=== PATIENT | male | born 1995 | race Caucasian/White ===

== ENCOUNTER 2018-05-13 03:05 | Emergency (ER) | payer OTHER, SELFPAY ==
[2018-05-13 03:06] VITALS: BP 113/68; PULSE 65; RESP 18; TEMP 36.4; O2SAT 98; BMI 28.8
--- NOTE | 2018-05-13 03:51 | EKG12_ITS ---
Test Reason : GEN ILLNESS Blood Pressure : / mmHG Vent. Rate : 055 BPM Atrial Rate : 055 BPM P-R Int : 154 ms QRS Dur : 104 ms QT Int : 404 ms P-R-T Axes : 053 069 028 degrees QTc Int : 386 ms Sinus bradycardia Otherwise normal ECG Confirmed by GUERA BOLTON, APRIL ([id number]), commissioning editor CHEMO WRAY ([id number] on 05/15/2018 11:28:38 AM Referred By: KATIE Confirmed By:APRIL LYNNE MD
--- NOTE | 2018-05-13 03:52 | ED.VIS.GEN ---
History of Present Illness Chief Complaint: General Illness Informant: Patient, Friend Onset: Hours - 2 Timing: Continuous - resolved now Quality: racing HB Location: chest Current Severity: gone Maximum Severity: Severe Worsened by: standing up Relieved by: drinking a bunch of water before coming to ED Associated Symptoms: anxious, lightheaded w/ standing Narrative: Patient states yesterday he drank 2 energy drinks, which he rarely does, and later additionally took 2 caplets of a dietary supplement that is used to boost energy and suppress appetite. However, he drank these drinks about 15-16 hours ago, and then took the supplements around 14 hours ago. He did not have any of these symptoms until he was trying to go to sleep tonight. He states after drinking the energy drinks, he was playing a softball game, and for the rest of the afternoon, evening, night, he drank no water until just prior to coming to the ER. He states that drinking plenty of water is recommended with these supplements, and that he usually does when he takes them, but it was cold and he did not want to drink a lot of cold water. At this time, he is basically asymptomatic, after drinking water. Past Medical History - Allergies and Home Meds Allergies/Adverse Reactions: Allergies No Known Allergies Allergy (Verified 03/11/14 07:14) Primary Care Physician: Wen Colunga MD [Primary Care Provider] - As Needed (if you have recurrent symptoms despite discontinuing the dietary supplement.) Past Medical History: None Surgical History: no surgical history Smoking Status: Former smoker Drugs: None Review of Systems General: Reports: - - lightheadedness Cardiovascular: Reports: Palpitations, Heart racing. Denies: Chest pain Respiratory: Reports: Dyspnea - resolved w/ palpitations Gastrointestinal: Denies: Nausea, Vomiting Musculoskeletal: Denies: Neck pain, Back pain Skin: Denies: Rash, Wounds Neurological: Denies: Headache, Weakness, Parasthesia Psych: Reports: Anxiety Physical Exam Vital Signs/Narrative: Vital Signs Temp Pulse Resp BP Pulse Ox 05/13/18 03:06 97.5 F L 65 18 113/68 98 Inital Vital Signs reviewed: Yes General: Well nourished, Well developed Head: Normocephalic, Atraumatic Eyes: Perrl, EOMI ENT: Moist mucous membranes, No rhinorrhea Neck: Supple, Nontender, No JVD Cardiovascular: Regular rate, Regular rhythm, No murmurs. Negative for: Tachycardia Respiratory: No distress, CTA bilaterally, Chest nontender Abdomen: Soft, Nontender, Nondistended, Normal bowel sounds Back: Nontender, Normal Inspection Extremities: Nontender, No edema Skin: Normal color, No rash Neurological: Alert, Oriented x3, Cranial nerves II-XII grossly intact, Normal Strength, Normal Sensation, Normal Gait Psychological: Normal affect Diagnostic/Tx/Re-eval Laboratory Tests 05/13/18 Range/Units 03:53 POC Glucose 125 H (70-110) mg/dL - Rhythm Strip Rhythm Strip: Sinus Rhythm Rate: 65 Ectopy: None - EKG Initial EKG Interpretation: Sinus Rhythm, No Acute Injury Pattern, - - normal intervals/axis, no delta wave, normal EKG - Medical Decision Making EKG and blood sugar are normal. I do not suspect this was caffeine toxicity since the symptoms occurred so long after stimulant/caffeine intake. It is possible they could have been side effects from the dietary supplement, combined with dehydration. His vital signs are normal now, I do not think he needs IV fluids, he can self hydrate orally. He already discarded all of the rest of the dietary supplement, and will no longer be taking it. Advised to limit his caffeine intake for the next couple days, and follow-up or return for recurrent symptoms despite discontinuing the supplement. He is comfortable with that plan. ED Disposition - Plan for ED Patient: Disposition: Home or Assisted Living Chief Complaint: General Illness Diagnosis: Palpitations Instructions: ED Palpitations Referrals: Wen Colunga MD [Primary Care Provider] - As Needed (if you have recurrent symptoms despite discontinuing the dietary supplement.)
[2018-05-13 04:00] LABS: Bedside Glucose 125 mg/dL (70-110)
== END 2018-05-13 04:19 | disposition home or self-care (01) ==
LOC: ED 04:09
PROVIDERS: Emergency Provider Emergency Medicine; Family Provider Family Medicine; PCP Family Medicine
DX: R00.2 Palpitations (principal); R42 Dizziness and giddiness; R06.00 Dyspnea, unspecified; Z87.891 Personal history of nicotine dependence
CPT/HCPCS: 82962; 93005; 99282

== ENCOUNTER → 2019-01-12 | Outpatient (CLI) | payer OTHER, SELFPAY ==
--- NOTE | 2019-01-12 16:32 | US_ITS ---
STUDY: SCROTUM ULTRASOUND REASON FOR EXAM: Male, 23 years old. Left testicular pain. TECHNIQUE: Ultrasound evaluation of the scrotum was performed with color Doppler and static valle-scale imaging. COMPARISON: None. FINDINGS: RIGHT TESTICLE INTRATESTICULAR: There is a normal size of the right testicle. The right testicle measures 4.4 x 2.4 x 2.0 cm. There is a homogenous echotexture. There is normal arterial and normal venous vascularity. There is no demonstrated right testicular mass or cyst. EXTRATESTICULAR: The epididymis is normal in size. The epididymis head measures 0.6 x 1.2 x 0.6 cm. There is normal vascularity of the epididymis. There is a 0.7 x 0.9 x 0.4 cm epididymal head cyst. There is no demonstrated hydrocele. There is no demonstrated varicocele. There is no demonstrated extratesticular mass or cyst. LEFT TESTICLE INTRATESTICULAR: There is a normal size of the left testicle. The left testicle measures 4.3 x 3.0 x 2.1 cm. There is a homogenous echotexture. There is normal arterial and normal venous vascularity. There is no demonstrated left testicular mass or cyst. EXTRATESTICULAR: The epididymis is normal in size. The epididymis head measures 0.7 x 0.8 x 0.5 cm. There is normal vascularity of the epididymis. There is no demonstrated epididymal cystic structure. There is no demonstrated hydrocele. There is no demonstrated varicocele. There is no demonstrated extratesticular mass or cyst. US/Testicular with Arterial Flow IMPRESSION: 1. Normal bilateral testicles. 2. Right epididymal head cyst. Electronically Signed: Gerald Lee DO at 17:42 EDT Tel [phone], Service support ,
== END | disposition home or self-care (01) ==
LOC: US 16:20
PROVIDERS: Family Provider Family Medicine; PCP Family Medicine; Referring Provider Nurse Practitioner Adult Health; Visit Provider Nurse Practitioner Adult Health
DX: N50.812 Left testicular pain (principal)
CPT/HCPCS: 76870; 93976

== ENCOUNTER → 2023-04-30 | Outpatient (CLI) | payer OTHER, SELFPAY ==
[2023-04-30 18:19] LABS: Thyroid Stim Hormone (TSH) 1.86 uIU/mL (0.358-3.74)
== END | disposition home or self-care (01) ==
LOC: MFPLAB 15:35
PROVIDERS: PCP Family Medicine; Visit Provider Family Medicine
DX: F41.9 Anxiety disorder, unspecified (principal)
CPT/HCPCS: 36415; 84443